=== PATIENT | female | born 1975 | race Caucasian/White ===

== ENCOUNTER → 2019-08-31 | Day surgery (SDC) | payer SELFPAY ==
[~2019-08-31] MED LIST: AMLODIPINE BESY10 MG PO; BACITRACIN 50,000 UNIT VIAL ONE; BUPIVACAINE HCL 0.5% INJ 30 ML VIAL INJ ONE; CEFAZOLIN SOD 1 GM VIAL ONE; DEXAMETHASONE SOD PHOS INJ 4 MG/ML VIAL ONE; DIOVAN160 MG PO; FENTANYL CITRATE/PF 100MCG/2 ML INJ ONE; GENTAMICIN SULFATE 40 MG/ML 2 ML VIAL ONE; HYDROCODONE/APAP 7.5MG-325MG 1 EA TAB ONE; KETOROLAC TROMETHAMINE 30 MG/ML VIAL ONE; LABETALOL HCL 5 MG/ML 20ML VIAL ONE; LIDOCAINE HCL 2% LOCAL INJ 5 ML SDV VIAL INJ ONE; MIDAZOLAM HCL 2 MG/2 ML VIAL ONE; ONDANSETRON HCL INJ 2MG/ML 2ML 2 MG/ML VIAL ONE; PROPOFOL IV EMULSION 10 MG/ML 20 ML VIAL ONE; ROCURONIUM BROMIDE 10 MG/ML 5ML VIAL ONE; SEVOFLURANE INHAL SOLN 250 ML PEN BTL ONE
--- OUTSIDE RECORDS SUMMARY | 2019-08-31 05:14 | XMS REPORT ---
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 Allergies, Adverse Reactions, Alerts This patient has no known allergies or adverse reactions. Medications This patient has no known medications. Results Test Description Test Time Test Comments Text Results Atomic Results Result Comments XR Chest 2 Views 2018-08-19 15:59:37 Patient: SHERI WHITFIELD Date/Time08/19/2018 15:45 CSTReason for Exam-ReportCHEST 2 VIEWREASON FOR STUDY: Preoperative store evaluation for gastric sleeve surgery.COMPARISON: None available.TECHNIQUE: AP and lateral views of the chest were obtained.COMMENTS:The lungs are clear. There are no pleural abnormalities. The heart and mediastinal contours are within normal limits. The bony thorax is intact.IMPRESSION:There is no abnormality identified in the chest. Final Dictated by: MD Shruthi, SamerDictated DT/TM: 08/19/2018 3:59 pmSigned by: MD Shruthi, SamerSigned (Electronic Signature): 08/19/2018 3:59 pm
[2019-08-31] MEDS: CEFAZOLIN SOD 1 GM/NS 50ML 50 ML IV ONE (06:54)
[2019-08-31] MEDS: ONDANSETRON HCL INJ 2MG/ML 2ML 2 MG/ML VIAL ONE (12:47)
[2019-08-31] MEDS: PROMETHAZINE HCL (IM) 25 MG/ML VIAL ONE (12:56)
[2019-08-31] MEDS: METOCLOPRAMIDE HCL 10 MG/2ML VIAL ONE (13:15)
[2019-08-31 14:00] VITALS: BP 140/80
--- NOTE | 2019-08-31 20:58 | Operative Report ---
DATE OF PROCEDURE: 08/31/2019 SURGEON: Christoph Max MD PREOPERATIVE DIAGNOSES: Bilateral breast ptosis, involution of breasts. POSTOPERATIVE DIAGNOSES: Bilateral breast ptosis, involution of breasts. PROCEDURES: 1. Bilateral augmentation mammoplasty. 2. Bilateral mastopexy. ANESTHESIA: General. HISTORY: The patient is a 44-year-old female, who has undergone bariatric surgery. She has lost in excess of 100 pounds. She wishes to have both breast lift as well as breast augmentation. The risks, benefits, and alternatives to treatment were discussed with the patient. She has signed the [employer] [employer] consent form for the proposed procedures. PROCEDURE IN DETAIL: The patient was marked preoperatively in the holding area in the upright position. Both the breast meridian and the site of the new nipples was marked out. Note was made of significant asymmetry between the breasts with the left breast being larger and more ptotic than the right. Once the patient was fully marked, she was brought to the operating theater and after the induction of adequate general anesthesia, placement of a Alvares catheter and Venodyne compression boots, she was prepped and draped in supine position and a time-out was performed. The procedure was begun by marking out 6 cm inferior mammary incisions beneath both breasts. The incisions were made through the skin and subcutaneous tissues and bleeding was controlled using the electrocautery. The electrocautery was used to deepen the incision through the subcutaneous and breast tissue until the fascia of the pectoralis major muscle was identified. At this point, as per the dual plane technique, the breast tissue was elevated off the pec fascia up to the level of the nipple areolar complex. At this point, the inferior medial margin of the pectoralis major muscle was identified and using the electrocautery, the inferior medial attachments of the pectoralis major were then transected. Once the subpectoral space was entered, the remainder of the inferior border of the pectoralis muscle was released. Care was taken to ensure that a cuff of tissue remained to maintain the integrity of the inframammary fold. At this point, the lower third of the pectoralis insertion medially was released using electrocautery. The subpectoral space was then enlarged using the electrocautery and lighted elimination until the pocket reached the limits that were marked on the skin. Both pockets were irrigated with bacteriostatic saline and hemostasis was made absolute using the electrocautery. The patient was requesting 650 mL implants. A 700 mL sizer was placed into both breast pockets and the patient was then assessed. Several adjustments to both pockets were required in order to allow smooth draping of the tissues over the implant. The sizer was removed. The adjustments to the pockets were made and then the sizer implant was then replaced. At this point, it was noted that there was satisfactory contouring and space to the pocket to accommodate the implant, the patient's requested size. At this point, the sizers were removed. Both pockets were inspected once again for hemostasis, which was made absolute using electrocautery. Using the antibiotic solution, it was recommended for breast implantation of bacitracin 50,000 units, gram of Ancef and 80 mg of gentamicin and saline. Both pockets were irrigated copiously with this solution in both implants, which were 650 mL high strength cohesive high-profile smooth implants, lot number and serial number located within the patient's chart. The implants were then placed within their respective pockets. The pockets were then closed utilizing 3-0 Monocryl in an interrupted fashion to approximate the deep tissues, 4-0 Monocryl in an interrupted buried fashion to approximate the deep dermis. At this point, the patient was then sat up and the degree of ptosis was assessed. There was significantly more ptosis on the left side than the right side. Using the preoperative markings, the site of the new nipple and nipple-areolar complex was performed and then tailor tacking of the breast tissues was used to approximate the tissue into a satisfactory contour. A vertical limb of 7 cm from the inferior border of the nipple-areolar complex was then used and then at this point, horizontal limbs were marked out in the inframammary region. The patient was then made supine. The skin markings were reinforced where the skin was tailor tacked and the angie were then removed. Both nipple-areolar complexes were circumscribed with a 42 mm cookie cutter. The incisions around the nipple-areolar complex were then made through the skin and the deep dermal tissues. The tissue above the nipple-areolar complex was then de-epithelialized in standard fashion. The de-epithelialization continued below the nipple-areolar complex for distance of 2-3 cm. At this point, the skin paddles were then removed in subcutaneous plane. At this point, all bleeding points were attended to with electrocautery. Around the vertical limbs adjacent to where the tissue was de-epithelialized, the cautery was used to release this tissue in order to allow the nipple-areolar complexes to be migrated cephalad and transposed into their new location without any tension on them. At this point, the nipple-areolar complexes were temporarily tacked to the new areolar border and the vertical limb and horizontal limbs were temporarily tacked using surgical clips as well. The patient was then sat up and assessed and the tailor tacking and removal of the skin paddles was noted to be satisfactory. The placement of the nipple and the nipple-areolar complexes was noted to be at the most prominent point on the breasts. The patient was made supine and then 3-0 Monocryl was used in an interrupted buried fashion to approximate the deep dermal tissues. The surgical clips were removed and the remainder of the incisions were closed with 3-0 Monocryl in an interrupted buried fashion followed by 4-0 Monocryl running subcuticular stitch. At the completion of the procedure, both nipple-areolar complexes had excellent capillary refill and color and the skin flaps were noted to be well perfused. The skin incisions were dressed with 1-inch brown Steri-Strips. Sterile dressings were applied over the Steri-Strips. ABD pads were then used to pad around the breast tissue and this was held in place with a large 6-inch Hay wrap. The patient tolerated the procedure well. The estimated blood loss of procedure was approximately 100 mL. She was brought to recovery room in satisfactory condition and discharged with a postoperative instruction sheet as well as a followup appointment. MD FRANCO Amanda/MODL /[id number]
== END | disposition home or self-care (01) ==
LOC: OR 05:09
PROVIDERS: ATTEND Plastic Surgery
DX: O99.89 Other specified diseases and conditions complicating pregnancy, childbirth and the puerperium (principal); N64.81 Ptosis of breast; N60.82 Other benign mammary dysplasias of left breast; N60.81 Other benign mammary dysplasias of right breast; I10 Essential (primary) hypertension; Z01.810 Encounter for preprocedural cardiovascular examination
CPT/HCPCS: 19316; 19325; 81025; 93005; J0690 ×2; J1100; J1580; J1885; J2001; J2250; J2405; J2550; J2704; J2765; J3010; J3490

== ENCOUNTER → 2020-05-02 | Day surgery (SDC) | payer BC ==
[~2020-05-02] MED LIST changes: -BACITRACIN 50,000 UNIT VIAL ONE; -BUPIVACAINE HCL 0.5% INJ 30 ML VIAL INJ ONE; -CEFAZOLIN SOD 1 GM VIAL ONE; +CEFAZOLIN SOD 1 GM/NS 50ML 50 ML IV ONE; -GENTAMICIN SULFATE 40 MG/ML 2 ML VIAL ONE; +HYDROCODONE/APAP 10MG-325MG TAB ONE; -HYDROCODONE/APAP 7.5MG-325MG 1 EA TAB ONE; -LABETALOL HCL 5 MG/ML 20ML VIAL ONE; -ROCURONIUM BROMIDE 10 MG/ML 5ML VIAL ONE; +VANCOMYCIN HCL 500 MG ONE; +VITAMIN C500 M1 PO
[2020-05-02 09:05] VITALS: BP 143/86
--- NOTE | 2020-05-02 10:30 | Operative Report ---
DATE OF PROCEDURE: 05/02/2020 SURGEON: Christoph Max MD PREOPERATIVE DIAGNOSIS: Right breast periprosthetic capsular contraction. POSTOPERATIVE DIAGNOSIS: Right breast periprosthetic capsular contraction. PROCEDURE: Right breast open capsulectomy/capsulotomy, right breast. ANESTHESIA: General. HISTORY: The patient is a 44-year-old female, who underwent bilateral augmentation mastopexy approximately 6 months ago. The patient has sustained a right breast capsular contracture, which is now forcing the implant to be constricted both laterally as well as superiorly. The risks, benefits, and alternatives of treatment were discussed with the patient. She is prepared to undergo the procedure as outlined. She has signed the [employer] consent forms. PROCEDURE IN DETAIL: The patient was marked preoperatively in the holding area. She was brought to the operating theater and after the induction of adequate general anesthesia, she was prepped and draped in a supine position and a time-out was performed. The procedure was begun by marking out the previous horizontal incision in the inframammary location. The scar was somewhat widened and the proposed incision would include excision of the scar. The incision was then made through the skin and the subcutaneous tissues. All bleeding was controlled using the electrocautery. Using electrocautery, the skin paddle was then removed in the subcutaneous plane. The incision in the subcutaneous plane was then made using the electrocautery through the subcutaneous and breast tissue and down to the level of the capsule. The capsule was noted to be soft and pliable, and was incised with electrocautery and the implant was visualized. The implant was removed and inspected. It was noted to have no creases and then appears to be in satisfactory condition. It was placed in an antibiotic-containing solution. At this point, inspection of the capsule reveals it to be soft, however, it is somewhat constricted on the medial and lateral aspect. There was no evidence of infection. At this point using electrocautery, radial scoring of the capsule was performed from the chest wall superiorly. Once all the radial scoring has been done, hemostasis was achieved with electrocautery. Because the implant was also deviated superiorly, the inferior portion of the capsule was then incised horizontally in several areas and some portions of the capsule were removed using electrocautery. At this point, hemostasis was made absolute once again and the pocket was irrigated with an antibiotic-containing solution. The implant was retrieved and it was placed back within the subpectoral pocket, and the patient was then sat up and assessed for symmetry. The implant was now noted to lie more in its correct position. There was no constriction on the medial or lateral aspects of the pocket. The patient was made supine. The implant was removed and the pocket was inspected for hemostasis once again, which was made absolute. Irrigation of the pocket with antibiotic-containing solution ensues. At this point, the implant which was soaking in antibiotic solution was placed in the pocket once again and a layered closure was performed. A 3-0 Monocryl was used in an interrupted fashion to close the capsule. A 4-0 Monocryl was used in an interrupted buried fashion to approximate the deep dermis and finally, a 5-0 Monocryl running subcuticular stitch was performed. Steri-Strips were applied. Sterile dressings were applied over the Steri-Strips. The patient was then placed in a postsurgical bra and there was a compression on the superior aspect of the breast to keep the implant from riding superiorly. The patient tolerated the procedure well. Estimated blood loss for the procedure was less than 50 mL. She was returned to recovery room in satisfactory condition and discharged with a postoperative instruction sheet as well as a followup appointment. MD FRANCO Amanda/MARK /[id number]
== END | disposition home or self-care (01) ==
LOC: OR 05:19
PROVIDERS: ATTEND Plastic Surgery
DX: T85.44XA Capsular contracture of breast implant, initial encounter (principal); Z98.84 Bariatric surgery status; I10 Essential (primary) hypertension; Z01.810 Encounter for preprocedural cardiovascular examination; Z01.812 Encounter for preprocedural laboratory examination; Z20.828 Contact with and (suspected) exposure to other viral communicable diseases
CPT/HCPCS: 19340; 19371; 81025; 93005; J0690; J1100; J1885; J2001; J2250; J2405; J2704; J3010; J3370; U0002